=== PATIENT | female | born 1970 | race Two or more races ===

== ENCOUNTER 2017-12-12 08:14 | Outpatient (CLI) | payer OTHER | END 2017-12-12 08:29 | disposition home or self-care (01) | LOC: SONOGRAMA 08:14 → MAMO-SONO 08:15 → SONOGRAMA 08:29 | DX: R10.84 Generalized abdominal pain (principal) ==

== ENCOUNTER 2017-12-16 07:29 | Outpatient (CLI) | payer OTHER | END 2017-12-16 07:34 | disposition home or self-care (01) | LOC: NUCLEAR 07:29 | DX: I87.2 Venous insufficiency (chronic) (peripheral) (principal) ==

== ENCOUNTER 2018-10-14 04:40 | Day surgery (SDC) | payer OTHER ==
[~2018-10-14 04:40] MED LIST: ALLEGRA ALLERG180 MG PO; MAGNESIUM30 MG PO; MULTIPLE VITAM1 EACH PO; VIT D PO; XARELTO20 MG
== END 2018-10-14 11:55 | disposition home or self-care (01) ==
LOC: CIR.AMB 04:40
DX: K80.10 Calculus of gallbladder with chronic cholecystitis without obstruction (principal)

== ENCOUNTER 2020-01-31 09:38 | Outpatient (CLI) | payer OTHER | END 2020-01-31 09:51 | disposition home or self-care (01) | LOC: NUCLEAR 09:38 | PROVIDERS: ATTEND Internal Medicine Cardiovascular Disease | DX: I10 Essential (primary) hypertension (principal) ==

== ENCOUNTER 2020-01-31 10:42 | Outpatient (CLI) | payer OTHER | END 2020-01-31 10:44 | disposition home or self-care (01) | LOC: MAMO-SONO 10:42 | PROVIDERS: ATTEND Internal Medicine Cardiovascular Disease | DX: N63.11 Unspecified lump in the right breast, upper outer quadrant (principal) ==

== ENCOUNTER 2024-08-05 08:36 | Outpatient (CLI) | payer OTHER | END 2024-08-05 08:37 | disposition home or self-care (01) | LOC: NUCLEAR 08:36 | PROVIDERS: ATTEND Internal Medicine Cardiovascular Disease | DX: I10 Essential (primary) hypertension (principal) ==